=== PATIENT | female | born 1950 | race Caucasian/White ===

== ENCOUNTER → 2019-10-18 14:37 | Outpatient (CLI) | payer MEDICARE, SELFPAY ==
--- NOTE | 2019-10-18 | DI.MRI.S_ITS ---
PROCEDURE: MR HAND LT WO/W CON INDICATIONS: Pain and swelling in left 2nd digit TECHNIQUE: Noncontrast coronal T1 spin echo and T2 fast spin echo with fat saturation, axial proton density fast spin echo and T2 fast spin echo with fat saturation, axial T1 spin echo with fat saturation, sagittal T1 spin echo and STIR through the hand and fingers. Post-contrast axial, coronal, and sagittal T1 spin echo through the hand and fingers. COMPARISON: [facility] [place], [place], XR FINGER(S) LEFT, 10/07/2019, 13:27. FINDINGS: Image quality: Excellent. Bones: Osteophytic changes are noted involving second PIP and DIP joints. There is marrow edema involving second middle and distal phalanges with subtle erosion involving the dorsal and radial aspect of second middle phalangeal head. No other area of abnormal marrow signal is seen. Mild to moderate osteophytic changes are also noted in first interphalangeal joint, first MCP joint, first CMC joint and third through fifth PIP and DIP joints. No other area of bony erosion is seen. No definite abnormal intraosseous enhancement is seen. Soft tissues: Flexor and extensor tendons are grossly intact. Collateral ligaments of the MCP joint and PIP joint of second digit are grossly intact. There is soft tissue edema and swelling surrounding the second DIP joint and distal portion of second finger. No discrete drainable fluid collection is seen. No significant joint effusion is seen. Visualized muscles demonstrate normal bulk and internal signal. No intramuscular masses identified. No ganglion cysts. IMPRESSION: 1. Soft tissue swelling surrounding the second DIP joint with suggestion of cellulitis. No gross drainable fluid collection is seen. 2. There is edema involving second middle and distal phalanges with a subtle erosive changes involving radial aspect of second middle phalangeal head concerning for osteomyelitis if there is a clinical concern for an infection. This could also represent erosion secondary to inflammatory arthritis. 3. Flexor and extensor tendons are grossly intact. The radial collateral ligament of the distal interphalangeal joint is suboptimally evaluated due to 2 extensive surrounding soft tissue edema and swelling, torn radial collateral ligament cannot be excluded. Dictated by: Salazar Cox M.D. on 10/19/2019 at 10:44 Approved by: Salazar Cox M.D. on 10/19/2019 at 10:56
== END ==
PROVIDERS: Family Provider Family Medicine; PCP Family Medicine; Referring Provider Orthopaedic Surgery; Visit Provider Orthopaedic Surgery
DX: M79.645 Pain in left finger(s) (principal); M79.89 Other specified soft tissue disorders
CPT/HCPCS: 73220; A9579

== ENCOUNTER → 2022-02-03 09:56 | Outpatient (CLI) | payer MEDICARE, SELFPAY ==
[2022-02-03 20:04] LABS: Add Manual Diff / Slide Review NO; Basophils Absolute Auto 100 /uL (0-100); Basophils Percent Auto 1.4 % (0-2); Eosinophils Absolute Auto 200 /uL (0-450); Hematocrit 31.2 % (36-46); Hemoglobin 10.5 g/dL (12.0-16.0); Lymphocytes Absolute Auto 1000 /uL (1100-4500); Mean Corpuscular HGB Conc 33.6 % (30-36); Mean Corpuscular Hemoglobin 30.1 PG (26-34); Mean Corpuscular Volume 89.4 fL (80-100); Monocytes Absolute Auto 400 /uL (0-900); Monocytes Percent Auto 8.6 % (3-14); Neutrophils Absolute Auto 2800 /uL (1500-7000); Platelet Count 207 X10^3/uL (150-400); Red Blood Cell Count 3.49 X10^6/uL (4.0-5.2); Red Cell Distribution Width 13.8 % (11.6-14.8); White Blood Cell Count 4.4 X10^3/uL (4.5-11.0)
[2022-02-03 20:31] LABS: Hemoglobin A1C% w Est Avg Glu 5.7 % (4.0-6.0)
[2022-02-03 20:46] LABS: HEMOLYSIS < 15 (0-50)
[2022-02-03 20:59] LABS: TSH w/ Reflex to FT4 4.81 uIU/mL (0.47-4.68)
[2022-02-03 23:17] LABS: Alanine Aminotransferase 10 IU/L (<35); Albumin 4.5 g/dL (3.5-5.0); Albumin Globulin Ratio 1.6 (1.0-2.8); Alkaline Phosphatase 78 U/L (38-126); Aspartate Aminotransferase 29 IU/L (14-36); BUN Creatinine Ratio 16.8 (6-22); Bilirubin Total 0.6 mg/dL (0.2-1.3); Blood Urea Nitrogen 21 mg/dL (7-17); Calcium 9.3 mg/dL (8.4-10.2); Carbon Dioxide 26 mmol/L (22-32); Chloride 106 mmol/L (98-107); Estimated Glomerular Filt Rate 46 mL/min (>60); Globulin 2.8 g/dL (1.7-4.1); Glucose 116 mg/dL (80-110); HDL Cholesterol 51 mg/dL (40-60); Potassium 5.1 mmol/L (3.4-5.1); Sodium 139 mmol/L (137-145); Total Protein 7.3 g/dL (6.3-8.2); Triglycerides 350 mg/dL (35-150)
[2022-02-03 23:39] LABS: Cholesterol 345 mg/dL (140-199); LDL Cholesterol Calculated 224 mg/dL (<100)
== END ==
PROVIDERS: Family Provider Family Medicine; PCP Physician Assistant Medical; Visit Provider Physician Assistant Medical
DX: E11.9 Type 2 diabetes mellitus without complications (principal); F32.9 Major depressive disorder, single episode, unspecified; S80.01XA Contusion of right knee, initial encounter; M79.2 Neuralgia and neuritis, unspecified; M79.7 Fibromyalgia
CPT/HCPCS: 80053; 80061; 83036; 84439; 84443; 85025

== ENCOUNTER → 2022-02-07 11:13 | Outpatient (CLI) | payer MEDICARE, SELFPAY ==
[2022-02-07 19:38] LABS: Add Manual Diff / Slide Review NO; Basophils Absolute Auto 100 /uL (0-100); Basophils Percent Auto 1.1 % (0-2); Eosinophils Absolute Auto 100 /uL (0-450); Hematocrit 30.4 % (36-46); Hemoglobin 10.4 g/dL (12.0-16.0); Lymphocytes Absolute Auto 900 /uL (1100-4500); Mean Corpuscular HGB Conc 34.1 % (30-36); Monocytes Absolute Auto 300 /uL (0-900); Monocytes Percent Auto 6.6 % (3-14); Neutrophils Absolute Auto 3500 /uL (1500-7000); Neutrophils Percent Auto 72.3 % (50-75); Platelet Count 193 X10^3/uL (150-400); Red Blood Cell Count 3.45 X10^6/uL (4.0-5.2); Red Cell Distribution Width 13.7 % (11.6-14.8); White Blood Cell Count 4.8 X10^3/uL (4.5-11.0)
[2022-02-07 19:41] LABS: Appearance Urine UA CLEAR; Bilirubin Urine UA NEGATIVE (NEGATIVE); Color Urine UA YELLOW; Glucose Urine UA NEGATIVE (Negative); Ketones Urine UA NEGATIVE (NEGATIVE); Leukocyte Esterase Urine UA NEGATIVE (NEGATIVE); Nitrite Urine UA NEGATIVE (Negative); Occult Blood Urine UA NEGATIVE (Negative); Protein Urine UA TRACE (Negative); Specific Gravity Urine UA 1.015 (1.000-1.035); Urobilinogen Urine UA 0.2 E.U./dL (0.2)
[2022-02-07 19:48] LABS: Bacteria Urine None Seen; Culture Indicated Urine Cult Not Indicated; RBC Urine None Seen (0-5/HPF); Squamous Epithelial Cell Urine 0-1 /HPF (0-5/HPF); WBC Urine 0-1/HPF (0-5/HPF)
[2022-02-07 22:46] LABS: Microalbumin Urine Random 6.9 mg/dL (0-1.6)
[2022-02-08 01:01] LABS: Creatinine Urine Random 78.4 mg/dL
[2022-02-08 02:17] LABS: Alanine Aminotransferase 11 IU/L (<35); Albumin 4.3 g/dL (3.5-5.0); Albumin Globulin Ratio 1.5 (1.0-2.8); Alkaline Phosphatase 83 U/L (38-126); Aspartate Aminotransferase 27 IU/L (14-36); BUN Creatinine Ratio 21.4 (6-22); Bilirubin Total 0.6 mg/dL (0.2-1.3); Blood Urea Nitrogen 28 mg/dL (7-17); Carbon Dioxide 24 mmol/L (22-32); Chloride 100 mmol/L (98-107); Estimated Glomerular Filt Rate 43 mL/min (>60); Globulin 2.9 g/dL (1.7-4.1); Glucose 105 mg/dL (80-110); HEMOLYSIS < 15 (0-50); Potassium 5.1 mmol/L (3.4-5.1); Sodium 134 mmol/L (137-145); Total Protein 7.2 g/dL (6.3-8.2)
[2022-02-09 15:02] LABS: Free T3, Triiodothyronine Free 2.79 pg/mL (2.77-5.27)
== END ==
PROVIDERS: Family Provider Family Medicine; PCP Physician Assistant Medical; Visit Provider Physician Assistant Medical
DX: S80.01XA Contusion of right knee, initial encounter (principal); E11.40 Type 2 diabetes mellitus with diabetic neuropathy, unspecified; D64.9 Anemia, unspecified; E03.9 Hypothyroidism, unspecified; F32.89 Other specified depressive episodes; M10.9 Gout, unspecified; R29.6 Repeated falls; R94.4 Abnormal results of kidney function studies
CPT/HCPCS: 80053; 81001; 82043; 82570; 84443; 84481; 85025